=== PATIENT | female | born 1940 | race Caucasian/White ===

== ENCOUNTER 2017-07-08 08:03 | Day surgery (SDC) | payer OTHER ==
[~2017-07-08] VITALS: Ht 162.6 cm; Wt 95.2 kg
[~2017-07-08 08:03] MED LIST: ASPI81EC PO; CALCA500CH PO; CHOL10002 PO; CYAN100 PO; Coumadin5 MG PO; DHEA PO; DRON400T; ESCI10 PO; ESCI20 PO; ESOM20 PO; GABA100 PO; IBUP600 PO; LISHYD1012 PO; LOVA20 PO; Lopressor 25 mg25 MG PO; NORT10 PO; Norco 5-325 Ta1 EACH PO; OMEP20ER PO; Omeprazole20 M1; POTA10T PO; PROACE100 PO; Percocet 5-3251 EACH PO; SPIHYD PO; TRAM50 PO; XARELTO10 MG PO; ZOLP10 PO; Zofran4 MG PO
[2017-07-08] MEDS ORDERED: DRON400T PO (09:01)
[2017-07-08] MEDS ORDERED: Omeprazole20 M1 PO (09:02)
[2017-07-08] MEDS ORDERED: LIVALO1 MG PO (09:04)
[2017-07-08] MEDS ORDERED: ESTR2 PO (09:05)
== END 2017-07-08 22:45 | disposition home or self-care (01) ==
LOC: ORSCMMR 08:03 → ORD 09:30 → ORSCMMR 09:30
PROVIDERS: Internal Medicine Gastroenterology
PROC: 0DB68ZX Excision of Stomach, Via Natural or Artificial Opening Endoscopic, Diagnostic (ICD-10-PCS; principal; 2017-07-08 09:30)
PROC: 0DB58ZX Excision of Esophagus, Via Natural or Artificial Opening Endoscopic, Diagnostic (ICD-10-PCS; principal; 2017-07-08 09:30)
PROC: 0DJD8ZZ Inspection of Lower Intestinal Tract, Via Natural or Artificial Opening Endoscopic (ICD-10-PCS; principal; 2017-07-08 09:30)
PROC: 0DB98ZX Excision of Duodenum, Via Natural or Artificial Opening Endoscopic, Diagnostic (ICD-10-PCS; principal; 2017-07-08 09:30)
PROC: 0DB48ZX Excision of Esophagogastric Junction, Via Natural or Artificial Opening Endoscopic, Diagnostic (ICD-10-PCS; principal; 2017-07-08 09:30)
DX: D50.9 Iron deficiency anemia, unspecified (principal); K25.9 Gastric ulcer, unspecified as acute or chronic, without hemorrhage or perforation; K44.9 Diaphragmatic hernia without obstruction or gangrene; K57.30 Diverticulosis of large intestine without perforation or abscess without bleeding; K21.0 Gastro-esophageal reflux disease with esophagitis; K62.5 Hemorrhage of anus and rectum; I48.2 Chronic atrial fibrillation; I10 Essential (primary) hypertension; G47.33 Obstructive sleep apnea (adult) (pediatric); E78.00 Pure hypercholesterolemia, unspecified; Z79.01 Long term (current) use of anticoagulants; Z79.899 Other long term (current) drug therapy
CPT/HCPCS: 88305; 88342; J2250; J3010; J7120

== ENCOUNTER 2018-06-18 07:51 | Day surgery (SDC) | payer OTHER ==
[~2018-06-18 07:51] MED LIST changes: +DRON400T PO; +ESTR2 PO; +LIVALO1 MG PO; +Omeprazole20 M1 PO
[2018-06-18] MEDS ORDERED: LISI20 (08:42)
[2018-06-18] MEDS ORDERED: FURO20 (08:43)
== END 2018-06-18 10:55 | disposition home or self-care (01) ==
LOC: MHTC 07:51
DX: I48.0 Paroxysmal atrial fibrillation (principal); Q21.1 Atrial septal defect; I08.0 Rheumatic disorders of both mitral and aortic valves; I11.9 Hypertensive heart disease without heart failure; G47.33 Obstructive sleep apnea (adult) (pediatric); E78.5 Hyperlipidemia, unspecified; M79.7 Fibromyalgia; F32.9 Major depressive disorder, single episode, unspecified; E66.9 Obesity, unspecified; Z77.21 Contact with and (suspected) exposure to potentially hazardous body fluids; Z79.899 Other long term (current) drug therapy; Z88.5 Allergy status to narcotic agent; Z88.8 Allergy status to other drugs, medicaments and biological substances; Z88.1 Allergy status to other antibiotic agents; Z99.89 Dependence on other enabling machines and devices
CPT/HCPCS: 93312; 93325; J0461; J2250; J2310; J3010; J7040

== ENCOUNTER 2019-01-29 06:04 | Day surgery (SDC) | payer OTHER ==
[~2019-01-29] VITALS: Ht 160 cm; Wt 98.0 kg
[~2019-01-29 06:04] MED LIST changes: +B-12 COMPL1000 MCG/1 INJ; +BUDE10.22 INH; +CYAN1000I IM; +FURO20; +LISI20; +METO25ER PO; +VITAMIN D35000 UNI1 PO; +Ventolin/Prove6.7 GM INH; +ZOLP5 PO
--- NOTE | 2019-01-29 07:59 | NUR ---
AT 0743 ROME RT AND BANDAR RT IN ROOM WITH DR DEL REAL AND TIMEOUT COMPLETED FOR ELECTIVE CARDIOVERSION. AT 0754 CARDIOVERSION COMPLETED WITH ONE 200J SYNCHRONIZED SHOCK DELIVERED. PT TOLERATED WELL.
--- NOTE | 2019-01-29 08:26 | NUR ---
PT'S FAMILY IN ROOM TALKING WITH PT.
--- NOTE | 2019-01-29 08:58 | NUR ---
DISCHARGE INSTRUCTIONS REVIEWED AND ALL QUESTIONS ANSWERED. 20 G IV DISCONTINUED FROM RIGHT WRIST WITH INTACT CANNULA. PT ESCORTED OUT VIA WHEELCHAIR ESCORT.
== END 2019-01-29 09:00 | disposition home or self-care (01) ==
LOC: MHTC 06:04
DX: I48.0 Paroxysmal atrial fibrillation (principal); G47.33 Obstructive sleep apnea (adult) (pediatric); E78.5 Hyperlipidemia, unspecified; F32.9 Major depressive disorder, single episode, unspecified; M79.7 Fibromyalgia; I11.9 Hypertensive heart disease without heart failure; I08.0 Rheumatic disorders of both mitral and aortic valves; E66.9 Obesity, unspecified; Z88.1 Allergy status to other antibiotic agents; Z88.5 Allergy status to narcotic agent; Z88.8 Allergy status to other drugs, medicaments and biological substances; Z91.040 Latex allergy status; Z99.89 Dependence on other enabling machines and devices; Z79.899 Other long term (current) drug therapy; Z68.38 Body mass index [BMI] 38.0-38.9, adult
CPT/HCPCS: 36415; 83735; 92960; 93005; 93010; J2250; J3010; J7030

== ENCOUNTER → 2019-02-09 | Outpatient (CLI) | payer OTHER ==
[2019-02-10 14:07] LABS: HPV 16 Positive (Negative); HPV 18 Negative (Negative); HPV OTHER HR TYPES Negative (Negative)
== END | disposition home or self-care (01) ==
LOC: LAB 10:12 → LAB SHORT 10:12
PROVIDERS: Nurse Practitioner Women's Health
DX: Z12.72 Encounter for screening for malignant neoplasm of vagina (principal); Z91.89 Other specified personal risk factors, not elsewhere classified
CPT/HCPCS: 87624; G0123

== ENCOUNTER 2019-02-26 09:56 | Emergency (ER) | payer OTHER ==
[~2019-02-26] VITALS: Ht 160 cm; Wt 95.2 kg
[2019-02-26 10:29] LABS: BASOPHILS ABSOLUTE AUTO 0.02 K/mm3 (0.00-0.23); BASOPHILS PERCENT AUTO 0 % (0-2); EOSINOPHILS ABSOLUTE AUTO 0.02 K/mm3 (0.00-0.68); EOSINOPHILS PERCENT AUTO 0 % (0-6); Hematocrit 36.1 % (33.0-51.0); Hemoglobin 11.5 g/dL (11.5-16.0); IMMATURE GRAN ABSOLUTE AUTO 0.01 K/mm3 (0.00-0.10); IMMATURE GRAN PERCENT AUTO 0 % (0-1); LYMPHOCYTES ABSOLUTE AUTO 1.96 K/mm3 (0.84-5.20); LYMPHOCYTES PERCENT AUTO 34 % (21-46); MONOCYTES ABSOLUTE AUTO 0.52 K/mm3 (0.16-1.47); MONOCYTES PERCENT AUTO 9 % (4-13); Mean Corpuscular HGB 28.5 pg (26.0-34.0); Mean Corpuscular HGB Conc 31.9 g/dL (31.5-36.5); Mean Corpuscular Volume 89 fL (80-100); Mean Platelet Volume 9.9 fL (9.1-12.4); NEUTROPHILS PERCENT AUTO 56 % (41-73); Platelet Count 186 K/mm3 (150-400); RDW Coefficient Variation 14.6 % (11.7-14.2); RDW Standard Deviation 47.8 fL (35.1-46.3); Red Blood Cell Count 4.04 M/mm3 (3.80-5.20); White Blood Cell Count 5.73 K/mm3 (4.00-11.30)
[2019-02-26 10:36] LABS: Source, Urine Clean Catch
[2019-02-26 10:41] LABS: Alanine Aminotransfer (ALT/SGP 16 U/L (12-78); Albumin, Blood 3.3 g/dL (3.4-5.0); Alk Phos 84 U/L (50-136); Anion Gap 5 mmol/L (6-16); Aspartate Aminotrans (AST/SGOT 19 U/L (12-37); Bilirubin, Total 0.3 mg/dL (0.1-1.0); Blood Urea Nitrogen 15 mg/dL (8-24); Bun/Creatinine Ratio 15.7 (12.0-20.0); CO2, Blood 28 mmol/L (21-32); Calcium, Blood 8.4 mg/dL (8.5-10.1); Chloride, Blood 110 mmol/L (98-108); Creatinine, Blood 0.95 mg/dL (0.40-1.00); Globulin, Blood 3.2 g/dL (2.2-4.0); Glomerular Filtration Rate >60 (60-); Glucose, Blood 118 mg/dL (70-99); Potassium, Blood 3.7 mmol/L (3.5-5.5); Sodium, Blood 143 mmol/L (136-145); Total Protein, Blood 6.5 g/dL (6.4-8.2)
[2019-02-26 10:45] LABS: Appearance, Urine Clear (Clear); Bilirubin, Urine Neg (Neg); Blood, Urine 5+ (Neg); Color, Urine Yellow (P-Yellow); Glucose Qualitative, Urine Neg (Neg); Ketones, Urine Neg (Neg); Leukocyte Esterase, Urine Neg (Neg); Nitrite, Urine Neg (Neg); Protein, Urine Neg (Neg); Urobilinogen, Urine NORM (Normal)
[2019-02-26] MEDS ORDERED: POTA10T PO (11:08)
[2019-02-26] MEDS ORDERED: LISI20 PO (11:08)
[2019-02-26] MEDS ORDERED: ZOLP5 PO (11:08)
[2019-02-26] MEDS ORDERED: DRON400T PO (11:08)
[2019-02-26 11:09] LABS: Bacteria Not Seen /hpf; Squamous Epithelial Cells Few /hpf (Few); White Blood Cells, Urine Not Seen /hpf (0-5)
[2019-02-26] MEDS ORDERED: Flonase 0.05% N16 GM (11:09)
[2019-02-26] MEDS ORDERED: LIVALO1 MG PO (11:09)
[2019-02-26] MEDS ORDERED: DIVIGEL1 EACH (11:10)
[2019-02-26] MEDS ORDERED: METO25ER PO (11:10)
[2019-02-26] MEDS ORDERED: XARELTO20 MG PO (11:20)
[2019-02-26] MEDS ORDERED: ZESTRIL40 MG PO (11:20)
[2019-02-26] MEDS ORDERED: ONDA4ODT MM (11:49)
== END 2019-02-26 12:14 | disposition home or self-care (01) ==
LOC: ER 09:56
PROVIDERS: Emergency Medicine
DX: N13.2 Hydronephrosis with renal and ureteral calculous obstruction (principal); R55 Syncope and collapse; I10 Essential (primary) hypertension; I48.91 Unspecified atrial fibrillation; Z79.899 Other long term (current) drug therapy
CPT/HCPCS: 74177; 80053; 81001; 83690; 84484; 85025; 93005; 93010; 96374-59; 99284-25; J2405; Q9967

== ENCOUNTER → 2019-03-11 | Outpatient (CLI) | payer OTHER ==
[~2019-03-11] MED LIST changes: +DIVIGEL1 EACH; +Flonase 0.05% N16 GM; +LISI20 PO; +ONDA4ODT MM; +XARELTO20 MG PO; +ZESTRIL40 MG PO
== END | disposition home or self-care (01) ==
LOC: PLD 12:44 → LAB SHORT 12:44
DX: R87.621 Atypical squamous cells cannot exclude high grade squamous intraepithelial lesion on cytologic smear of vagina (ASC-H) (principal); R87.811 Vaginal high risk human papillomavirus (HPV) DNA test positive
CPT/HCPCS: 88305

== ENCOUNTER 2020-12-13 11:50 | Emergency (ER) | payer OTHER ==
[~2020-12-13] VITALS: Ht 160 cm; Wt 93.9 kg
[~2020-12-13 11:50] MED LIST changes: +ALBU90OI INH; +ASPI81CH PO; +FURO20 PO; +Loratadine10 MG PO; +MECL12.5 PO; +VITAMIN D35000 UNI2 PO
[2020-12-13 13:44] LABS: Alanine Aminotransfer (ALT/SGP 15 U/L (12-78); Albumin, Blood 3.6 g/dL (3.4-5.0); Albumin/Globulin Ratio 1.1 (0.8-1.8); Alk Phos 75 U/L (50-136); Anion Gap 4 mmol/L (6-16); Aspartate Aminotrans (AST/SGOT 16 U/L (12-37); Bilirubin, Total 0.9 mg/dL (0.1-1.0); Blood Urea Nitrogen 11 mg/dL (8-24); Bun/Creatinine Ratio 15.1 (12.0-20.0); CO2, Blood 26 mmol/L (21-32); Chloride, Blood 111 mmol/L (98-108); Creatinine, Blood 0.73 mg/dL (0.40-1.00); Globulin, Blood 3.4 g/dL (2.2-4.0); Glomerular Filtration Rate >60 (60-); Glucose, Blood 92 mg/dL (70-99); Potassium, Blood 3.8 mmol/L (3.5-5.5); Sodium, Blood 141 mmol/L (136-145); Troponin I <0.015 ng/mL (0.000-0.040)
[2020-12-13 14:48] LABS: BASOPHILS ABSOLUTE AUTO 0.02 K/mm3 (0.00-0.23); BASOPHILS PERCENT AUTO 0 % (0-2); EOSINOPHILS ABSOLUTE AUTO 0.08 K/mm3 (0.00-0.68); EOSINOPHILS PERCENT AUTO 1 % (0-6); Hematocrit 29.4 % (33.0-51.0); Hemoglobin 8.5 g/dL (11.5-16.0); IMMATURE GRAN ABSOLUTE AUTO 0.03 K/mm3 (0.00-0.10); IMMATURE GRAN PERCENT AUTO 0 % (0-1); LYMPHOCYTES ABSOLUTE AUTO 1.57 K/mm3 (0.84-5.20); LYMPHOCYTES PERCENT AUTO 22 % (21-46); MONOCYTES ABSOLUTE AUTO 0.58 K/mm3 (0.16-1.47); MONOCYTES PERCENT AUTO 8 % (4-13); Mean Corpuscular HGB 20.9 pg (26.0-34.0); Mean Corpuscular HGB Conc 28.9 g/dL (31.5-36.5); Mean Corpuscular Volume 72 fL (80-100); Mean Platelet Volume 10.2 fL (9.1-12.4); NEUTROPHILS ABSOLUTE AUTO 4.88 K/mm3 (1.96-9.15); NEUTROPHILS PERCENT AUTO 68 % (41-73); Platelet Count 241 K/mm3 (150-400); RDW Coefficient Variation 18.8 % (11.7-14.2); RDW Standard Deviation 48.2 fL (35.1-46.3); Red Blood Cell Count 4.07 M/mm3 (3.80-5.20); White Blood Cell Count 7.16 K/mm3 (4.00-11.30)
[2020-12-13] MEDS ORDERED: OMEPRAZOLE MAGN20 MG PO (15:54)
== END 2020-12-13 16:23 | disposition home or self-care (01) ==
LOC: ER 11:50
PROVIDERS: Emergency Medicine Emergency Medical Services
DX: I48.91 Unspecified atrial fibrillation (principal); R53.1 Weakness; E87.70 Fluid overload, unspecified; I10 Essential (primary) hypertension; K21.9 Gastro-esophageal reflux disease without esophagitis; G47.33 Obstructive sleep apnea (adult) (pediatric); Z88.8 Allergy status to other drugs, medicaments and biological substances; Z88.5 Allergy status to narcotic agent; Z88.1 Allergy status to other antibiotic agents; Z91.040 Latex allergy status; Z79.899 Other long term (current) drug therapy; Z79.01 Long term (current) use of anticoagulants; Z79.82 Long term (current) use of aspirin
CPT/HCPCS: 36415; 71045; 80053; 83880; 84484; 85025; 93005; 93010; 99284-25

== ENCOUNTER → 2020-12-20 | Outpatient (CLI) | payer OTHER ==
[~2020-12-20] MED LIST changes: +OMEPRAZOLE MAGN20 MG PO
[2020-12-22 10:14] LABS: Stool Occult Bld Immuno 1 Negative (NEGATIVE)
== END | disposition home or self-care (01) ==
LOC: LAB 15:27 → LAB SHORT 15:27
PROVIDERS: Internal Medicine Gastroenterology
DX: D64.9 Anemia, unspecified (principal)
CPT/HCPCS: 82274

== ENCOUNTER 2021-07-26 07:19 | Day surgery (SDC) | payer OTHER ==
[~2021-07-26] VITALS: Ht 162.6 cm; Wt 93.3 kg
== END 2021-07-26 08:57 | disposition home or self-care (01) ==
LOC: ORSCSDS 07:19
PROVIDERS: Ophthalmology
PROC: 08RK3JZ Replacement of Left Lens with Synthetic Substitute, Percutaneous Approach (ICD-10-PCS; principal; 2021-07-26 08:30)
DX: H25.13 Age-related nuclear cataract, bilateral (principal); G47.33 Obstructive sleep apnea (adult) (pediatric); J44.9 Chronic obstructive pulmonary disease, unspecified; I10 Essential (primary) hypertension; I48.91 Unspecified atrial fibrillation; E66.9 Obesity, unspecified; Z68.35 Body mass index [BMI] 35.0-35.9, adult; Z79.01 Long term (current) use of anticoagulants; Z79.899 Other long term (current) drug therapy
CPT/HCPCS: J2001; J2250; J3010; J3301; J7040; V2632

== ENCOUNTER 2021-08-16 06:18 | Day surgery (SDC) | payer OTHER ==
[~2021-08-16] VITALS: Ht 162.6 cm; Wt 93.3 kg
[2021-08-16] MEDS ORDERED: LIVALO2 MG PO (06:34)
[2021-08-16] MEDS ORDERED: FURO40 PO (06:35)
--- NOTE | 2021-08-16 06:43 | NUR ---
08/16/21 0643 Ida Prasad CALL LIGHT WITHIN REACH. MARIANGEL AT 0632 PLEJUSTINETT AT 0634 IN THE RIGHT EYE
== END 2021-08-16 08:06 | disposition home or self-care (01) ==
LOC: ORSCSDS 06:18
PROVIDERS: Ophthalmology
PROC: 08RJ3JZ Replacement of Right Lens with Synthetic Substitute, Percutaneous Approach (ICD-10-PCS; principal; 2021-08-16 07:30)
DX: H25.11 Age-related nuclear cataract, right eye (principal); G47.33 Obstructive sleep apnea (adult) (pediatric); I10 Essential (primary) hypertension; E66.9 Obesity, unspecified; Z68.35 Body mass index [BMI] 35.0-35.9, adult; Z79.01 Long term (current) use of anticoagulants; Z79.899 Other long term (current) drug therapy
CPT/HCPCS: J2001; J2250; J3010; J3301; J7040; V2632